=== PATIENT | female | born 1995 | race Two or more races ===

== ENCOUNTER 2018-10-16 02:07 | Inpatient (IN) | payer OTHER ==
[~2018-10-16] VITALS: Ht 157.5 cm; Wt 85.3 kg
[2018-10-16] MEDS ORDERED: PRENATAL 19 TA1 EAC1 PO (03:46)
== END 2018-10-18 11:16 | DRG 807 ==
LOC: LDR 02:07 → OB/GYN 16:30
PROVIDERS: ADMIT Obstetrics & Gynecology
PROC: 10E0XZZ Delivery of Products of Conception, External Approach (ICD-10-PCS; principal; 2018-10-16)
PROC: 3E033VJ Introduction of Other Hormone into Peripheral Vein, Percutaneous Approach (ICD-10-PCS; 2018-10-16)
PROC: 4A1HXCZ Monitoring of Products of Conception, Cardiac Rate, External Approach (ICD-10-PCS; 2018-10-16)
DX: O80 Encounter for full-term uncomplicated delivery (principal); Z37.0 Single live birth; Z3A.38 38 weeks gestation of pregnancy

== ENCOUNTER 2020-07-01 23:33 | Emergency (ER) | payer OTHER ==
[~2020-07-01] VITALS: Ht 162.6 cm; Wt 68.9 kg
[~2020-07-01 23:33] MED LIST: PRENATAL 19 TA1 EAC1 PO
== END 2020-07-02 04:22 | disposition home or self-care (01) ==
LOC: ER 23:33
DX: U07.1 COVID-19 (principal); T50.995A Adverse effect of other drugs, medicaments and biological substances, initial encounter; Y92.89 Other specified places as the place of occurrence of the external cause

== ENCOUNTER 2022-01-02 18:06 | Emergency (ER) | payer OTHER ==
[~2022-01-02] VITALS: Ht 157.5 cm; Wt 75.3 kg
[2022-01-02] MEDS ORDERED: [UNRECOGNIZED DRUG - OTHER] (18:23)
[2022-01-03] MEDS ORDERED: PEPCID20 MG PO (01:44)
[2022-01-03] MEDS ORDERED: CIPRO500 MG PO (01:44)
[2022-01-03] MEDS ORDERED: LEVSIN0.125 MG PO (01:44)
[2022-01-03] MEDS ORDERED: INTESTINEX680 M1 PO (01:44)
[2022-01-03] MEDS ORDERED: METRONIDAZOLE500 MG PO (01:44)
== END 2022-01-03 01:53 | disposition home or self-care (01) ==
LOC: ER 18:06
DX: K52.9 Noninfective gastroenteritis and colitis, unspecified (principal); R19.7 Diarrhea, unspecified

== ENCOUNTER 2025-03-05 14:09 | Emergency (ER) | payer OTHER ==
[~2025-03-05] VITALS: Ht 157.5 cm; Wt 66.7 kg
[~2025-03-05 14:09] MED LIST changes: +CIPRO500 MG PO; +INTESTINEX680 M1 PO; +LEVSIN0.125 MG PO; +METRONIDAZOLE500 MG PO; +PEPCID20 MG PO; +[UNRECOGNIZED DRUG - OTHER]
[2025-03-05] MEDS ORDERED: ACETAMINOPHEN 500 MG GEL..CAP PO ONE ×2 (16:26→16:30)
[2025-03-05 16:41] LABS: BASO % 0.5 % (0.1-1.2); EOS # 0.13 (0.04-0.54); EOS % 1.2 % (0.7-7.0); HEMOGLOBIN 11.2 g/dL (11.2-15.7); LYMPH % 13.4 % (19.3-53.1); MEAN CORPUSCULAR HEMOGLOBIN 26.7 pg (25.6-32.2); MONO # 0.87 (0.24-0.82); MONO % 7.8 % (4.7-12.5); NEUT # 8.64 (1.56-6.13); NEUT % 76.9 % (34.0-71.1); PLATELET COUNT 340 K/uL (163-369); RED BLOOD COUNT 4.19 M/uL (3.93-5.22); RED CELL DISTRIBUTION WIDTH 14.9 % (11.6-14.4)
== END 2025-03-05 17:50 ==
LOC: ER 14:09
PROVIDERS: General Practice
DX: N93.9 Abnormal uterine and vaginal bleeding, unspecified (principal)